=== PATIENT | male | born 1980 | race Caucasian/White ===

== ENCOUNTER → 2024-01-20 | Outpatient (CLI) | payer BC ==
--- NOTE | 2024-02-11 16:09 | CT ---
Site ID [facility] Patient Javier Fontenot E ID [id number] Age/Gender: 43Y, M Order # N/A Procedure CT soft tissue neck wo/w con Date 01/20/2024 2:53:39 PM EXAMINATION TYPE: CT soft tissue neck wo/w con CT DLP: 1279 mGycm, Automated exposure control for dose reduction was used. DATE OF EXAM: 02/03/2024 3:04 PM COMPARISON: CT neck 05/26/2012. CLINICAL INDICATION: Male, 43 year old with history of right neck mass; , TECHNIQUE: Standard CT of the neck before and after the uneventful administration of 100 cc of Isovue 300. Axial sections with coronal and sagittal reformats were obtained. FINDINGS: Brain: Visualized portions are grossly unremarkable. Orbits: Unremarkable Sinuses: Similar size in inferior left maxillary sinus 1.3 cm mucous retention cyst. Increased size o f left maxillary sinus 1.9 cm mucous retention cyst. Suprahyoid Neck: The oropharynx, oral cavity, parapharyngeal and retropharyngeal spaces are clear and symmetric. The nasopharynx is unremarkable. Bilateral palatine tonsil calcifications. Infrahyoid Neck: The larynx, hypopharynx, and supraglottic area are clear and symmetric. Parotid Glands: Unremarkable. Submandibular Glands: Unremarkable. Musculoskeletal: No acute osseous pathology. No aggressive osseous lesion. Lymph nodes: No enlarged lymph nodes greater than 1 cm short axis. Vascular structures: Visualized major arteries are patent without evidence of aneurysm. Thoracic Inlet/airway: Airway is patent. The lung apices are clear. Soft tissues/Thyroid: Thyroid and remainder of the soft tissues are unremarkable. Other: No abnormality identified at the external BB site of patient's region of palpable abnormality IMPRESSION No CT evidence for mass at site of palpable abnormality. No other evidence of significant abnormality .
== END | disposition home or self-care (01) ==
LOC: RADCTMAIN 14:36
PROVIDERS: ATTEND Family Medicine
DX: R22.1 Localized swelling, mass and lump, neck (principal); J34.1 Cyst and mucocele of nose and nasal sinus; J35.8 Other chronic diseases of tonsils and adenoids
CPT/HCPCS: 70492; Q9967